=== PATIENT | male | born 1960 | race Two or more races ===

== ENCOUNTER 2023-11-07 16:58 | Emergency (ER) | payer MEDICAID, OTHER ==
[~2023-11-07] VITALS: Ht 170.2 cm; Wt 171.8 kg
[2023-11-07 18:28] VITALS: BP 167/97; PULSE 81; RESP 18; TEMP 98.2; O2SAT 96
[2023-11-07] MEDS ORDERED: LISI40TA16 PO (18:41)
[2023-11-07] MEDS ORDERED: NIFE1TAB31 PO (18:41)
[2023-11-07] MEDS ORDERED: ATOR-507 PO (18:41)
[2023-11-07] MEDS ORDERED: GABA-339 PO (18:41)
== END 2023-11-07 18:49 | disposition home or self-care (01) ==
LOC: ER 16:58
DX: I10 Essential (primary) hypertension (principal); E11.9 Type 2 diabetes mellitus without complications; E78.5 Hyperlipidemia, unspecified; Z76.0 Encounter for issue of repeat prescription

== ENCOUNTER 2024-03-12 16:31 | Emergency (ER) | payer SELFPAY ==
[~2024-03-12] VITALS: Ht 170.2 cm; Wt 78.6 kg
[~2024-03-12 16:31] MED LIST: ATOR-507 PO; GABA-339 PO; LISI40TA16 PO; NIFE1TAB31 PO
[2024-03-12 17:28] LABS: Basophils # (auto) 0 10 ^3/uL (0-0.2); Basophils % (auto) 0.5 % (0.0-2.0); Eosinophils # (auto) 0.1 10 ^3/uL (0-0.8); Eosinophils % (auto) 1.4 % (0.0-7.0); Hematocrit 44.5 % (41.0-53.0); Hemoglobin 15.7 g/dL (13.5-17.5); Lymphocytes # (auto) 1.2 10 ^3/uL (0.4-5.4); Lymphocytes % (auto) 14.3 % (10.0-50.0); Mean Corpuscular Hemoglobin 31.7 pg (28.0-32.0); Mean Corpuscular Hgb Conc. 35.2 g/dL (32.0-36.0); Monocytes # (auto) 0.9 10 ^3/uL (0-1.3); Monocytes % (auto) 10.4 % (0.0-12.0); Neutrophils # (auto) 6.2 10 ^3/uL (1.6-8.6); Neutrophils % (auto) 73.4 % (37.0-80.0); Nucleated Red Blood Cells % 0.2 %; Platelet Count (auto) 145 10^3/uL (140-450); Red Blood Cells 4.95 10^6/uL (4.5-5.90); Red Cell Distribution Width 14.1 % (11.8-14.3); White Blood Cell 8.4 10^3/uL (4.4-10.8)
[2024-03-12 17:41] LABS: Alanine Aminotransferase 21 U/L (7-40); Albumin 4.8 g/dL (3.2-4.8); Alkaline Phosphatase 158 U/L (46-116); Anion Gap 8 (5-15); Aspartate Aminotransferase 15 U/L (13-40); Bilirubin, Total 1.2 mg/dL (0.2-1.0); Blood Urea Nitrogen 20 mg/dL (9-23); Calcium 9.7 mg/dL (8.7-10.4); Carbon Dioxide 30 mmol/L (20-31); Chloride 104 mmol/L (98-107); Glucose 91 mg/dL (74-106); Potassium 3.7 mmol/L (3.5-5.1); Sodium 142 mmol/L (136-145); Total Protein 7.1 g/dL (5.7-8.2)
[2024-03-12] MEDS: KETOROLAC TROMETH 60MG/2ML VIAL IM ONE (19:52)
[2024-03-12] MEDS: cloNIDine HCL 0.1 MG TAB PO ONE (20:03)
[2024-03-12] MEDS ORDERED: CLON0.2T PO (21:55)
[2024-03-12 23:20] VITALS: BP 121/84; PULSE 65; RESP 18; TEMP 97.8; O2SAT 98
[2024-03-12] MEDS ORDERED: LISI10TA34 PO (23:50)
[2024-03-12] MEDS ORDERED: NIFE1TAB36 PO (23:50)
== END 2024-03-12 23:54 | disposition home or self-care (01) ==
LOC: ER 16:31
DX: I10 Essential (primary) hypertension (principal); R07.89 Other chest pain; E11.9 Type 2 diabetes mellitus without complications; E78.5 Hyperlipidemia, unspecified; Z79.899 Other long term (current) drug therapy
CPT/HCPCS: 36415; 71045; 80053; 84484; 85025; 93005; 96372; 99285; J1885